=== PATIENT | male | born 1975 | race Caucasian/White ===

== ENCOUNTER 2020-03-19 17:12 | Emergency (ER) | payer BC, SELFPAY ==
[2020-03-19 17:18] VITALS: BP 159/79; PULSE 125; RESP 18; TEMP 37; O2SAT 97; BMI 26.9
--- NOTE | 2020-03-19 17:22 | ED_ITS ---
HPI - General Adult General Chief complaint: General Medical Stated complaint: consumed edible, too high Time Seen by Provider: 03/19/20 17:22 Source: patient and EMS Mode of arrival: EMS Limitations: altered mental status (Marijuana intoxication) History of Present Illness HPI narrative: 44-year-old male presents via EMS for acute marijuana intoxication. States that he called EMS because he was too high and has Anxiety. He is answering yes and no questions, history is limited secondary to acute marijuana intoxication. He is tachycardic, visibly anxious, but denies chest pain or pressure, shortness breath, abdominal pain, abdominal distention, dysuria, hematuria, and any other concerning symptoms. Onset (ago): hour(s) (2 pm today) Severity: moderate Severity scale (1-10): 8 Associated symptoms: confusion Related Data Home Medications Medication Instructions Recorded Confirmed No Known Home Meds 03/19/20 03/19/20 Allergies Allergy/AdvReac Type Severity Reaction Status Date / Time tree nut [TREE NUT] Allergy Severe ANAPHYLAXIS Unverified 02/13/20 16:15 Review of Systems Review of Systems: Yes Unobtainable due to mental status PMFSH Past Medical History Attestation statement: The following information was validated with the patient. Medical History No known health problems Social History Social History Alcohol intake: never Smoked in Last 30 Days: No Use of substances other than those prescribed or required for medical reasons: Yes Substance Use Type: Marijuana Advance Directives: No Advance Directives Information Provided: No Physical Exam Vital Signs: Vital Signs: Vital Signs Temp Pulse Resp BP Pulse Ox 03/19/20 20:54 97 20 134/84 03/19/20 18:04 116 H 14 127/69 03/19/20 17:18 98.6 F 125 H 18 159/79 H 97 Body Mass Index 26.9 Appearance: Alert. Oriented X3. Moderate distress, anxiety. Head: Normal external exam. Normocephalic. Atraumatic. No Hernandez signs noted. No raccoon eyes noted Eyes: PERRLA. EOMI. Conjunctiva and sclera normal. Eyelids normal. ENT: TM's Normal. Pharynx normal. Uvula midline. Moist mucous membranes. No trismus noted. No drooling noted. No muffled voice noted. Neck: Normal inspection. Neck supple. No adenopathy. Thyroid Normal. No meningeal signs. No neck mass noted. CVS: Tachycardic. Heart sound normal. No murmurs noted. Pulses equal to all extremities. Respiratory: No respiratory distress. Painless inspiration. Breath sounds normal. No wheezes/rales/rhonchi noted. Chest nontender. No accessory muscle usage noted or decreased air movement noted. Abdomen: Soft and nontender. Bowel sounds normal in all 4 quadrants. No distention noted. No organomegaly noted. No visible injury noted. Back: No CVA tenderness. Full range of motion noted. Skin: Skin warm and dry. Normal skin color. Normal skin turgor. No rashes/lesions/lacerations noted. Extremities: No lower extremity edema. Extremities exhibit normal range of motion. Extremities nontender. Neuro: cranial nerves 2-12 intact, no focal neural deficits, strength 5/5 to all extremities, No motor deficit. No sensory deficit. Reflexes normal. Course Course Course Narrative: plan is for EKG and troponins as heart rate is in the 130s, drugs of abuse screen , CBC, Chem 7 and 1 L of fluids. patient states to feel better, heart rate in the low 100s, playing games on his telephone, stated that he is waiting for us to find a ride for him. He was informed that he must find his own ride, patient discharged home. Patient verbalized understanding of and agrees to plan of care. Medical Decision Making Differential Diagnosis Differential Diagnosis: Acute marijuana intoxication, substance abuse Medical Records Medical records reviewed: Yes I reviewed the patient's medical records. Lab Data Lab results reviewed: Yes I reviewed the patient's lab results. Result diagrams: 03/19/20 18:12 03/19/20 18:12 Labs: Lab Results 03/19/20 03/19/20 03/19/20 Range/Units 18:11 18:12 18:12 WBC 8.5 (4.8-10.8) X10*3/uL RBC 5.06 (4.60-5.80) X10*6/uL Hgb 14.6 (14.0-18.0) g/dl Hct 43.4 (42-52) % MCV 85.8 (80-98) fL MCH 28.9 (27.0-33.0) pg MCHC 33.6 (31.0-36.0) g/dl RDW 13.1 (11.0-16.0) % Plt Count 242 (160-400) X10*3/uL MPV 9.2 L (9.4-12.4) fL Immature Gran % (Auto) 0.1 (0.0-0.4) % Neut % (Auto) 77.3 H (45-73) % Lymph % (Auto) 17.0 L (20-40) % [place] % (Auto) 4.2 (2-11) % Eos % (Auto) 0.7 (0-4) % Baso % (Auto) 0.7 (0-2) % Lymph # (Auto) 1.4 (1.2-4.9) X10*3/uL [place] # (Auto) 0.4 (0.1-1.2) X10*3/uL Eos # (Auto) 0.1 (0.0-0.4) X10*3/uL Baso # (Auto) 0.1 (0.0-0.2) X10*3/uL Abs Immat Gran (auto) 0.01 (0.00-0.03) X10*3/uL Absolute Neuts (auto) 6.6 (2.0-8.3) X10*3/uL Absolute Nucleated RBC 0.000 (0.0-0.012) X10*3/uL Nucleated RBC % (auto) 0.0 (0.0-0.2) /100WBC Sodium 136 (135-145) mmol/L Potassium 3.7 (3.3-5.1) mmol/l Chloride 101 (96-108) mmol/L Carbon Dioxide 24 (22-29) mmol/L Anion Gap 15 (12-20) BUN 12 (9-16) mg/dL Creatinine 0.91 (0.5-1.4) mg/dL Estim Creat Clear Calc 121.6 Estimated GFR > 60 Random Glucose 199 H (60-115) mg/dL Calcium 8.7 (8.4-10.2) mg/dL Troponin I High Sens < 3.5 (<3.5-35.0) ng/L ECG Data Attestation: I personally reviewed and interpreted this ECG as follows: Prior ECG tracings: available for review Interpretation: Vent. rate 127 BPM UT interval 140 ms QRS duration 86 ms QT/QTc 316/459 ms P-R-T axes 69 37 46 Sinus tachycardia Otherwise normal ECG When compared with ECG of 02-MAR-2016 10:21, No significant change was found date March 19, 2020, time 5:51 p.m. Discharge Plan Discharge Clinical Impression: Accidental marijuana overdose Qualifiers: Encounter type: initial encounter Qualified Code(s): T40.7X1A - Poisoning by cannabis (derivatives), accidental (unintentional), initial encounter Patient Disposition: Home, Self-Care Instructions: Cannabis Abuse (ED) Additional Instructions: please consider decreasing the amount of edibles used. Thank you for choosing this emergency department for evaluation. Please follow-up with primary care physician as needed. Return to the emergency department for any new, concerning, or worsening symptoms. Prescriptions: No Action No Known Home Meds RF: 0 Interventions: ED Discharge Assessment Last Done: 03/19/20 20:45 Discharge Date/Time: 03/19/20 21:08
--- NOTE | 2020-03-19 17:25 | ECG_ITS ---
Test Reason : OVERDOSE Blood Pressure : / mmHG Vent. Rate : 127 BPM Atrial Rate : 127 BPM P-R Int : 140 ms QRS Dur : 086 ms QT Int : 316 ms P-R-T Axes : 069 037 046 degrees QTc Int : 459 ms Sinus tachycardia Otherwise normal ECG When compared with ECG of 02-MAR-2016 10:21, Heart rate has increased Referred By: Shannon Elder Electronically Signed By:ANAYELI REYES MD
[2020-03-19 18:04] VITALS: BP 127/69; PULSE 116; RESP 14
[2020-03-19 18:19] LABS: MANUAL DIFF FLAG NO
[2020-03-19 18:20] LABS: Basophils Absolute Auto 0.1 X10*3/uL (0.0-0.2); Basophils Percent Auto 0.7 % (0-2); Eosinophils Absolute Auto 0.1 X10*3/uL (0.0-0.4); Eosinophils Percent Auto 0.7 % (0-4); Hematocrit 43.4 % (42-52); Hemoglobin 14.6 g/dl (14.0-18.0); Imm Gran Abs Auto 0.01 X10*3/uL (0.00-0.03); Imm Gran Pct Auto 0.1 % (0.0-0.4); Lymphocytes Absolute Auto 1.4 X10*3/uL (1.2-4.9); Mean Corpuscular HGB Conc 33.6 g/dl (31.0-36.0); Mean Corpuscular Hemoglobin 28.9 pg (27.0-33.0); Mean Corpuscular Volume 85.8 fL (80-98); Mean Platelet Volume 9.2 fL (9.4-12.4); Monocytes Absolute Auto 0.4 X10*3/uL (0.1-1.2); Monocytes Percent Auto 4.2 % (2-11); Neutrophils Absolute Auto 6.6 X10*3/uL (2.0-8.3); Neutrophils Percent Auto 77.3 % (45-73); Platelet Count 242 X10*3/uL (160-400); Red Blood Count 5.06 X10*6/uL (4.60-5.80); Red Cell Distribution Width 13.1 % (11.0-16.0); White Blood Count 8.5 X10*3/uL (4.8-10.8)
[2020-03-19] MEDS: 0.9 % Sodium Chloride 1,000 ML 999 ML IVCONT (18:28)
[2020-03-19 18:48] LABS: Anion Gap 15 (12-20); Blood Urea Nitrogen 12 mg/dL (9-16); Calcium 8.7 mg/dL (8.4-10.2); Carbon Dioxide 24 mmol/L (22-29); Chloride 101 mmol/L (96-108); Creatinine Clr Calc Pharmacy 121.6; Estimated Glomerular Filt Rate > 60; Glucose Random 199 mg/dL (60-115); Potassium 3.7 mmol/l (3.3-5.1); Sodium 136 mmol/L (135-145)
[2020-03-19 18:55] LABS: Troponin-I High Sensitivity < 3.5 ng/L (<3.5-35.0)
[2020-03-19 20:54] VITALS: BP 134/84; PULSE 97; RESP 20
== END 2020-03-19 21:08 | disposition home or self-care (01) ==
PROVIDERS: Nurse Practitioner Family; Emergency Provider Emergency Medicine
DX: F12.180 Cannabis abuse with cannabis-induced anxiety disorder (principal); F41.1 Generalized anxiety disorder; F43.0 Acute stress reaction; Z71.51 Drug abuse counseling and surveillance of drug abuser
CPT/HCPCS: 36415; 80048; 84484; 85025; 93005; 96360; 99284